=== PATIENT | male | born 1950 | race Caucasian/White ===

== ENCOUNTER 2016-10-30 16:31 | Emergency (ER) | payer MEDICARE, MEDICAID ==
--- NOTE | 2016-10-30 17:45 | ER Document Report ---
ED General - General Time seen by provider: 17:29 Mode of Arrival: Medic Information source: Patient TRAVEL OUTSIDE OF THE [place] IN LAST 30 DAYS: No - HPI Onset: This morning Onset/Duration: Gradual Quality of pain: Achy - Both shoulders both hips and headache Severity: Moderate Associated symptoms: Body/muscle aches, Headache, Weakness Exacerbated by: Movement Relieved by: Denies Similar symptoms previously: Yes Recently seen / treated by doctor: No <NELSON CÁRDENAS - Last Filed: 10/30/16 19:16> <JUSTICE LESTER - Last Filed: 10/31/16 02:48> - General Chief Complaint: General Weakness Stated Complaint: WELL CHECK Notes: 66-year-old male presents to ED for fall this morning around 5:00 at home. He states he was trapped between the recliner and the sulfur and could not get himself up. He said he was not able to get up until his [id number] came over and found him on the floor and called EMS. He states he usually drives. He has a history of [place] high blood pressure COPD and stroke 2. (NELSON CÁRDENAS) - Related Data Allergies/Adverse Reactions: No Known Allergies Allergy (Unverified 12/03/13 15:02) Past Medical History - General Information source: Patient - Social History Smoking Status: Former Smoker Cigarette use (# per day): No Chew tobacco use (# tins/day): No Smoking Education Provided: No Frequency of alcohol use: None Drug Abuse: None Lives with: Alone Family History: CAD, CVA - Past Medical History Cardiac Medical History: Reports: Hx Heart Attack, Hx Hypertension - MEDICATED Pulmonary Medical History: Reports: Hx COPD Neurological Medical History: Reports: Hx Cerebrovascular Accident - 17 YRS AGO , LEFT SIDED WEAKNESS/2 STROKES Endocrine Medical History: Reports: Hx Hypothyroidism Renal/ Medical History: Reports: None Malignancy Medical History: Reports Hx Lung Cancer GI Medical History: Reports: Hx Hepatitis - HEP C Musculoskeltal Medical History: Reports None Skin Medical History: Reports None Psychiatric Medical History: Reports: None Traumatic Medical History: Reports: None Infectious Medical History: Reports: Hx Hepatitis - HEP C Past Surgical History: Reports: Hx Abdominal Surgery, Hx Open Heart Surgery - 6 MOS AGO - triple bypass, Hx Vascular Surgery - bilateral legs - Immunizations Immunizations up to date: Yes Hx Diphtheria, Pertussis, Tetanus Vaccination: Yes <NELSON CÁRDENAS - Last Filed: 10/30/16 19:16> Review of Systems - Review of Systems Constitutional: Weakness EENT: No symptoms reported Cardiovascular: No symptoms reported Respiratory: No symptoms reported Gastrointestinal: No symptoms reported Genitourinary: No symptoms reported Male Genitourinary: No symptoms reported Musculoskeletal: Joint pain - Bilateral shoulders and hips, Muscle pain, Muscle stiffness Skin: Other - Very loose skin Hematologic/Lymphatic: No symptoms reported Neurological/Psychological: No symptoms reported <NELSON CÁRDENAS - Last Filed: 10/30/16 19:16> Physical Exam - Vital signs Interpretation: Normal - General General appearance: Alert - HEENT Head: Normocephalic, Atraumatic Eyes: Normal Pupils: PERRL - Respiratory Respiratory status: No respiratory distress Chest status: Nontender Breath sounds: Normal Chest palpation: Normal - Cardiovascular Rhythm: Regular Heart sounds: Normal auscultation Murmur: No - Abdominal Inspection: Normal Distension: No distension Bowel sounds: Normal Tenderness: Nontender Organomegaly: No organomegaly - Back Back: Normal, Nontender - Extremities General upper extremity: Normal inspection, Nontender, Normal color, Normal ROM , Normal temperature General lower extremity: Normal inspection, Nontender, Normal color, Normal ROM , Normal temperature, Normal weight bearing. No: No's sign - Neurological Neuro grossly intact: Yes Cognition: Normal Orientation: AAOx4 Lore Coma Scale Eye Opening: Spontaneous Lore Coma Scale Verbal: Oriented Gibson Coma Scale Motor: Obeys Commands Lore Coma Scale Total: 15 Speech: Normal Motor strength normal: LUE, RUE, LLE, RLE Sensory: Normal - Psychological Associated symptoms: Normal affect, Normal mood - Skin Skin Temperature: Warm Skin Moisture: Dry Skin Color: Normal <NELSON CÁRDENAS - Last Filed: 10/30/16 19:16> <JUSTICE LESTER - Last Filed: 10/31/16 02:48> - Vital signs Vitals: Temp Pulse Resp BP Pulse Ox 97.5 F 96 16 118/76 98 10/30/16 16:47 10/30/16 16:47 10/30/16 16:47 10/30/16 16:47 10/30/16 16:47 - General Notes: This patient is very cachectic. He states he has not eaten in decent meal and 3 days because he cannot cook. He states he fell this morning around 5:00 and is not strong enough to get out from between the recliner and the sofa. ( NELSON CÁRDENAS) Course - Laboratory Result Diagrams: 10/30/16 18:13 10/30/16 18:13 <NELSON CÁRDENAS - Last Filed: 10/30/16 19:16> - Laboratory Result Diagrams: 10/30/16 18:13 10/30/16 18:13 <JUSTICE LESTER - Last Filed: 10/31/16 02:48> - Re-evaluation Re-evalutation: 10/30/16 19:[address] Wang for a ultrasound-guided IV as we have not been able to get IV after numerous sticks peripherally. IV was inserted in the right brachial. Report given to Justice OBRIEN. (NELSON CÁRDENAS) Patient is a 1.5 L of saline, patient eating at bedside. 10/31/16 Patient complaining of some lower back pain on reevaluation, urine resulted shows hematuria, because of this a CAT scan was performed but shows no acute abnormalities. 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 Was discussed with Dr. Rivas. Patient unable to have bowel movement evening he was complaining of diarrhea, he states his diarrhea has resolved, he states that he feels great after the fluids and eating, he is asking to go home now. Patient stood on his own and walked. Concern because of patient's low weight and lives by himself. He states he has good followup which he will perform, although after discussion he did agree to a social consult which was placed. He also agrees to return if he develops any concerning or worsening symptoms. Patient states he wants to call for a ride. Patient obtained a ride home. (JUSTICE LSETER) - Vital Signs Vital signs: Temp Pulse Resp BP Pulse Ox 97.5 F 96 22 H 150/83 H 100 10/30/16 16:47 10/30/16 16:47 10/30/16 19:01 10/31/16 01:01 04/19/17 01:01 - Laboratory Laboratory results interpreted by me: 10/30/16 10/30/16 10/30/16 18:13 18:13 20:50 RBC 3.96 L Hgb 12.5 L Hct 36.6 L Sodium 145.3 H BUN 28 H Glucose 122 H Calcium 10.9 H Direct Bilirubin 0.5 H Urine Protein 30 H Urine Ketones TRACE H Urine Blood LARGE H Urine Ascorbic Acid 40 H Discharge <NELSON CÁRDENAS - Last Filed: 10/30/16 19:16> <JUSTICE LESTER - Last Filed: 10/31/16 02:48> - Discharge Clinical Impression: Generalized weakness, Hematuria Fall Qualifiers: Encounter type: initial encounter Qualified Code(s): W19.XXXA - Unspecified fall, initial encounter Condition: Stable Disposition: HOME, SELF-CARE Additional Instructions: Continue rehydration at home. We have a social work consult placed to contact you and attempt to set up more support at home. 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 Return immediately for any concerning or worsening symptoms - abdominal pain, vomiting, fever, chest pain, etc.
[2016-10-30 18:34] LABS: ABSOLUTE BASOPHILS # (AUTO) 0.1 10^3/uL (0.0-0.2); ABSOLUTE LYMPHOCYTES (AUTO) 0.9 10^3/uL (0.5-4.7); ABSOLUTE MONOCYTES (AUTO) 0.4 10^3/uL (0.1-1.4); ABSOLUTE NEUT (AUTO) 4.7 10^3/uL (1.7-8.2); BASOPHILS % (AUTO) 1.1 % (0-2); EOSINOPHILS % (AUTO) 0.5 % (0-6); HEMATOCRIT 36.6 % (37.9-51.0); HEMOGLOBIN 12.5 g/dL (13.5-17.0); HGB HCT DIFFERENCE 0.9; LYMPHOCYTES % (AUTO) 14.3 % (13-45); MEAN CORPUSCULAR HEMOGLOBIN 31.5 pg (27.0-33.4); MEAN CORPUSCULAR HGB CONC 34.1 g/dL (32.0-36.0); MEAN CORPUSCULAR VOLUME 92 fl (80-97); MONOCYTES % (AUTO) 6.6 % (3-13); RED BLOOD COUNT 3.96 10^6/uL (4.35-5.55); RED CELL DISTRIBUTION WIDTH 13.3 % (11.5-14.0); SEGMENTED NEUTROPHILS % (AUTO) 77.5 % (42-78); WHITE BLOOD COUNT 6.1 10^3/uL (4.0-10.5)
[2016-10-30 18:47] LABS: ALANINE AMINOTRANSFERASE 34 U/L (21-72); ALBUMIN 4.1 g/dL (3.5-5.0); ALKALINE PHOSPHATASE 73 U/L (38-126); ANION GAP 13 (5-19); ASPARTATE AMINO TRANSFERASE 33 U/L (17-59); BILIRUBIN,DIRECT 0.5 mg/dL (0.0-0.4); BILIRUBIN,TOTAL 0.9 mg/dL (0.2-1.3); BLOOD UREA NITROGEN 28 mg/dL (7-20); CALCIUM 10.9 mg/dL (8.4-10.2); CARBON DIOXIDE 29 mmol/L (22-30); CHLORIDE 103 mmol/L (98-107); CREATINE KINASE 60 U/L (55-170); CREATININE RESULT 0.78 mg/dL (0.52-1.25); GLUCOSE 122 mg/dL (75-110); POTASSIUM 4.3 mmol/L (3.6-5.0); SODIUM 145.3 mmol/L (137-145); TOTAL PROTEIN 7.9 g/dL (6.3-8.2)
[2016-10-30 18:59] LABS: CREATINE KINASE MB 1.55 ng/mL (<4.55); TROPONIN I 0.021 ng/mL
[2016-10-30] MEDS ORDERED: NORMAL SALINE 1000 ML 1,000 ML IV ONE (19:08)
--- NOTE | 2016-10-30 19:34 | EKG REPORT ---
SEVERITY:- ABNORMAL ECG - SINUS RHYTHM PROBABLE LEFT ATRIAL ABNORMALITY RIGHT AXIS DEVIATION : Confirmed by: Tanika Heck MD 30-Oct-2016 19:33:30
[2016-10-30 21:15] LABS: APPEARANCE,URINE CLOUDY; BILIRUBIN,URINE NEGATIVE (NEGATIVE); CALCIUM OXALATE CRYSTALS,URINE FEW /HPF; GLUCOSE, URINE NEGATIVE (NEGATIVE); KETONES,URINE TRACE mg/dL (NEGATIVE); LEUKOCYTE ESTERASE,URINE NEGATIVE (NEGATIVE); NITRITE,URINE NEGATIVE (NEGATIVE); PROTEIN,URINE 30 mg/dL (NEGATIVE); UROBILINOGEN,URINE NEGATIVE mg/dL (<2.0)
[2016-10-30] MEDS ORDERED: NORMAL SALINE 1000 ML 500 ML IV ONE (22:39)
[2016-10-31 01:31] VITALS: BP 150/83
== END 2016-10-31 01:52 | disposition home or self-care (01) ==
LOC: ER 16:31
DX: R53.1 Weakness (principal); M25.511 Pain in right shoulder; M25.512 Pain in left shoulder; M25.551 Pain in right hip; M25.552 Pain in left hip; R51 Headache; M79.1 Myalgia; W08.XXXA Fall from other furniture, initial encounter; Y92.009 Unspecified place in unspecified non-institutional (private) residence as the place of occurrence of the external cause; M54.5 Low back pain; R31.9 Hematuria, unspecified; I71.4 Abdominal aortic aneurysm, without rupture; J44.9 Chronic obstructive pulmonary disease, unspecified; I10 Essential (primary) hypertension; I25.2 Old myocardial infarction; Z86.73 Personal history of transient ischemic attack (TIA), and cerebral infarction without residual deficits; Z87.891 Personal history of nicotine dependence; Z95.1 Presence of aortocoronary bypass graft; Z85.118 Personal history of other malignant neoplasm of bronchus and lung; Z60.2 Problems related to living alone
CPT/HCPCS: 93005; 99285; 36415; 82553; 82550; 85025; 80053; 81001; 84484; 71010; 73522; 73030; 76380; 93010; J7030

== ENCOUNTER → 2016-11-09 | Outpatient (CLI) | payer MEDICARE, MEDICAID ==
[2016-11-09 12:21] LABS: ALANINE AMINOTRANSFERASE 41 U/L (21-72); ALBUMIN 3.8 g/dL (3.5-5.0); ALKALINE PHOSPHATASE 64 U/L (38-126); ASPARTATE AMINO TRANSFERASE 40 U/L (17-59); BILIRUBIN,DIRECT 0.4 mg/dL (0.0-0.4); BILIRUBIN,TOTAL 0.7 mg/dL (0.2-1.3); TOTAL PROTEIN 7.6 g/dL (6.3-8.2)
[2016-11-15 13:40] LABS: ALDOSTERONE <1.0 ng/dL (0.0-30.0)
== END ==
LOC: OD 10:02
PROVIDERS: ATTEND Family Medicine
DX: R55 Syncope and collapse (principal); B17.0 Acute delta-(super) infection of hepatitis B carrier; N40.0 Benign prostatic hyperplasia without lower urinary tract symptoms
CPT/HCPCS: 36415; 80076; 82088; 82306; 82533; 82607; 82977; 84153; 84481